=== PATIENT | male | born 1970 | race Caucasian/White ===

== ENCOUNTER 2021-08-17 08:00 | Outpatient (CLI) | payer OTHER ==
--- NOTE | 2021-08-17 19:04 | XRAY Report ---
PROCEDURE: Chest 2 View X-Ray INDICATIONS: PRODUCTIVE COUGH TECHNIQUE: 2 view(s) of the chest. COMPARISON: 01/17/2011. FINDINGS: Surgical changes and devices: None. Lungs and pleura: No pleural effusions or pneumothorax. Lungs are clear. Mediastinum: Mediastinal contours are normal. Heart size is normal. Bones and chest wall: No suspicious bony abnormalities. Soft tissues appear unremarkable. IMPRESSION: No acute cardiopulmonary disease process. Reviewed by: Radha Marx MD, PhD on 08/17/2021 7:03 PM PDT Approved by: Radha Marx MD, PhD on 08/17/2021 7:03 PM PDT Station ID: [id number]
== END 2021-08-17 23:59 | disposition home or self-care (01) ==
LOC: DI.S 08:00
PROVIDERS: ATTEND Physician Assistant
DX: R05.8 Other specified cough (principal); Z20.822 Contact with and (suspected) exposure to COVID-19

== ENCOUNTER 2022-07-07 15:34 | Emergency (ER) | payer OTHER ==
[2022-07-07 16:15] LABS: BASOPHILS # (AUTO) 0.1 10^3/uL (0.0-0.1); BASOPHILS % (AUTO) 1.2 %; EOSINOPHILS # (AUTO) 0.2 10^3/uL (0.0-0.7); EOSINOPHILS % (AUTO) 3.5 %; HCT - HEMATOCRIT 46.7 % (42.0-52.0); HGB - HEMOGLOBIN 15.9 g/dL (14.0-18.0); LYMPHOCYTES # (AUTO) 1.5 10^3/uL (1.5-3.5); LYMPHOCYTES % (AUTO) 22.1 %; MEAN CORPUSCULAR HEMOGLOBIN 31.8 pg (27.0-31.0); MEAN CORPUSCULAR VOLUME 93.4 fL (80.0-94.0); MEAN PLATELET VOLUME 10.7 fL (7.4-11.4); MONOCYTES # (AUTO) 0.4 10^3/uL (0.0-1.0); MONOCYTES % (AUTO) 5.6 %; NEUTROPHILS # (AUTO) 4.6 10^3/uL (1.5-6.6); NEUTROPHILS % (AUTO) 67.3 %; PLT - PLATELET COUNT 225 10^3/uL (130-450); RED CELL DISTRIBUTION WIDTH 11.9 % (12.0-15.0); WHITE BLOOD COUNT 6.8 x10^3/uL (4.8-10.8)
--- OUTSIDE RECORDS SUMMARY | 2022-07-07 16:19 | EXTERNAL MEDICAL SUMMARY RPT | Continuity of Care Document ---
:1970 Author Organization [facility] Address [address] [place] [address] Phone Care Team Providers Name Role Phone Unavailable Unavailable Unavailable Mikey Palacios Pa-C Unavailable Unavailable Corinne, Provider Unavailable Unavailable Allergies No information. Encounters No information. Functional Status No information. Immunizations No information. Medications date description facility 2022-06-09 00:00 omeprazole [facility] 2022-06-10 00:00 omeprazole [facility] 2022-06-09 00:00 omeprazole [facility] 2022-06-10 00:00 omeprazole [facility] 2022-06-09 00:00 omeprazole [facility] 2022-06-10 00:00 omeprazole [facility] 2022-06-09 00:00 omeprazole [facility] 2022-06-10 00:00 omeprazole [facility] Problems date description facility 2022-06-09 00:00 Viral upper respiratory tract [facility] 2022-06-09 00:00 Viral upper respiratory tract [facility] 2022-06-09 00:00 Acute upper respiratory [facility] unspecified site [facility] 2022-06-09 00:00 Acute upper respiratory [facility] unspecified site [facility] 2022-06-09 00:00 Acute upper respiratory [facility], unspecified [facility] 2022-06-09 00:00 Acute upper respiratory [facility] unspecified [facility] Procedures date description facility 2022-06-09 00:00 Visit Code Hold [facility] 2022-06-09 00:00 Visit Code Hold [facility] 2022-06-09 00:00 COVID, FLU A+B Antigen (In Clinic [facility]) [facility] 2022-06-09 00:00 COVID, FLU A+B Antigen (In Clinic [facility] Results/Labs No information. Social History date description facility 2022-06-09 00:00 Never smoker [facility] [place] 2022-06-09 00:00 Never smoker [facility] [place] Vital Signs date measurement value units 2022-06-09 00:00 BMI 27.42 kg/m2 2022-06-09 00:00 BP_diastolic 76 mmHg 2022-06-09 00:00 BP_systolic 133 mmHg 2022-06-09 00:00 heart_rate 80 /min 2022-06-09 00:00 height_metric 175.26 cm 2022-06-09 00:00 height_standard 69 in 2022-06-09 00:00 respiration_rate 16 /min 2022-06-09 00:00 temperature_metric 36.11 C 2022-06-09 00:00 temperature_standard 97 F 2022-06-09 00:00 weight_metric 83.91 kg 2022-06-09 00:00 weight_standard 185 lb
[2022-07-07 16:29] LABS: ALBUMIN 4.2 g/dL (3.2-5.5); ALBUMIN/GLOBULIN RATIO 1.4 (1.0-2.2); BILIRUBIN,TOTAL 0.8 mg/dL (0.2-1.0); CALCIUM 9.1 mg/dL (8.5-10.3); CREATININE 0.9 mg/dL (0.6-1.2); POTASSIUM 3.6 mmol/L (3.5-5.0); TOTAL PROTEIN 7.3 g/dL (6.7-8.2)
--- NOTE | 2022-07-07 16:39 | ED Physician Documentation ---
PD HPI SYNCOPE - Stated complaint Stated Complaint: DIZZY/ABDNORMAL EKG - Chief complaint Chief Complaint: Neuro - History obtained from History obtained from: Patient - Additional information Additional information: This is a very healthy 51-year-old gentleman who presents after a near syncopal episode. He has had a cough for a few weeks. Took some Delsym cough syrup this morning. Then he was at work in his usual state of health sitting at his desk. He got up and started to feel dizzy so he walked into the cafeteria at work to get a glass of water and started feel very lightheaded and kind of slumped against a vending machine without true syncope. He feels better now. There is no associated changes in bowel movements, no dark/tarry. Review of Systems Constitutional: denies: Chills Respiratory: reports: Cough. denies: Dyspnea GI: reports: Abdominal Pain PD PAST MEDICAL HISTORY - Present Medications Home Medications: Ambulatory Orders Medication Instructions Recorded Confirmed No Known Home Medications 07/07/22 07/07/22 - Allergies Allergies/Adverse Reactions: Allergies Allergy/AdvReac Type Severity Reaction Status Date / Time No Known Drug Allergies Allergy Verified 07/07/22 15:41 - Social History Does the pt smoke?: No Smoking Status: Never smoker PD ED PE NORMAL - Vitals Vital signs reviewed: Yes - General General: Alert and oriented X 3, No acute distress - HEENT HEENT: PERRL, EOMI - Neck Neck: Supple, no meningeal sign, No bony TTP - Cardiac Cardiac: RRR, No murmur, Other (limited bedside echo, no effusion, normal squeeze) - Respiratory Respiratory: No respiratory distress, Clear bilaterally - Abdomen Abdomen: Non tender - Derm Derm: Normal color, Warm and dry - Extremities Extremities: No edema, No calf tenderness / cord - Neuro Neuro: Alert and oriented X 3, Normal speech Results - Vitals Vitals: Vital Signs - 24 hr 07/07/22 15:41 Temperature 36.1 C L Heart Rate 87 Respiratory 18 Rate Blood Pressure 116/68 O2 Saturation 98 Oxygen O2 Source Room air - EKG (time done) 1549 Rate: Rate (enter#) (77) Rhythm: NSR Rinard: RAD Intervals: Normal CT QRS: Low voltage Ischemia: Normal ST segments - Labs Labs: Laboratory Tests 07/07/22 07/07/22 07/07/22 16:10 16:10 16:10 WBC 6.8 RBC 5.00 Hgb 15.9 Hct 46.7 MCV 93.4 MCH 31.8 H MCHC 34.0 RDW 11.9 L Plt Count 225 MPV 10.7 Neut # (Auto) 4.6 Lymph # (Auto) 1.5 I[place]quois # (Auto) 0.4 Eos # (Auto) 0.2 Baso # (Auto) 0.1 Absolute Nucleated RBC 0.00 Nucleated RBC % 0.0 Sodium 136 Potassium 3.6 Chloride 100 L Carbon Dioxide 26 Anion Gap 10.0 BUN 14 Creatinine 0.9 Estimated GFR (MDRD) 89 Glucose 147 H Calcium 9.1 Total Bilirubin 0.8 AST 24 ALT 43 Alkaline Phosphatase 51 Troponin I High Sens < 2.3 L Total Protein 7.3 Albumin 4.2 Globulin 3.1 Albumin/Globulin Ratio 1.4 Lipase 59 H PD Medical Decision Making - ED course ED course: CBC reviewed and normal. Troponin reviewed and negative/normal. CMP reviewed with modest hyperglycemia, no other concerning findings. Two-view chest x-ray is unremarkable. 51-year-old gentleman after near syncopal episode without pertinent positive findings in the ER and has been asymptomatic for several hours prior to arrival. Differential diagnosis includes dehydration, pericardial effusion (ruled out wi th bedside echo), pneumothorax (ruled out with normal chest x-ray), active heart disease, but there is no evidence of this. Departure - Departure Disposition: 01 Home, Self Care Clinical Impression: Near syncope Condition: Good Record reviewed to determine appropriate education?: Yes Instructions: ED Near Syncope Unkn Comments: Work-up today was unremarkable with normal limited bedside echocardiogram, unremarkable labs and abnormal chest x-ray. Call your doctor to arrange a follow-up appointment, make the next available appointment. In the interim, return anytime if worse or if new symptoms deve lop.
[2022-07-07 17:14] VITALS: BP 119/71
--- NOTE | 2022-07-07 17:16 | XRAY Report ---
PROCEDURE: Chest 2 View X-Ray INDICATIONS: cough TECHNIQUE: 2 views of the chest were acquired. COMPARISON: Chest x-ray 08/17/2021 FINDINGS: Surgical changes and devices: None. Lungs and pleura: No pleural effusions or pneumothorax. Lungs are clear. Mediastinum: Mediastinal contours are normal. Heart size is normal. Bones and chest wall: No suspicious bony abnormalities. Soft tissues appear unremarkable. IMPRESSION: No acute pulmonary process. Reviewed by: Tiffanie Borrero MD on 07/07/2022 5:15 PM PST Approved by: Tiffanie Borrero MD on 07/07/2022 5:15 PM PST Station ID: [id number]
== END 2022-07-07 17:13 | disposition home or self-care (01) ==
LOC: ED 15:34
DX: R55 Syncope and collapse (principal)
CPT/HCPCS: 36415; 80053; 83690; 84484; 85025; 93005; 99283; 99284

== ENCOUNTER 2022-10-04 09:52 | Outpatient (CLI) | payer OTHER ==
[2022-10-04 10:13] LABS: BASOPHILS # (AUTO) 0.1 10^3/uL (0.0-0.1); BASOPHILS % (AUTO) 1.2 %; EOSINOPHILS # (AUTO) 0.1 10^3/uL (0.0-0.7); EOSINOPHILS % (AUTO) 2.7 %; HCT - HEMATOCRIT 47.2 % (42.0-52.0); HGB - HEMOGLOBIN 16.4 g/dL (14.0-18.0); LYMPHOCYTES # (AUTO) 1.2 10^3/uL (1.5-3.5); LYMPHOCYTES % (AUTO) 23.9 %; MEAN CORPUSCULAR HEMOGLOBIN 32.4 pg (27.0-31.0); MEAN CORPUSCULAR HGB CONC 34.7 g/dL (32.0-36.0); MEAN CORPUSCULAR VOLUME 93.3 fL (80.0-94.0); MEAN PLATELET VOLUME 10.6 fL (7.4-11.4); MONOCYTES # (AUTO) 0.4 10^3/uL (0.0-1.0); MONOCYTES % (AUTO) 7.5 %; NEUTROPHILS # (AUTO) 3.3 10^3/uL (1.5-6.6); NEUTROPHILS % (AUTO) 64.5 %; PLT - PLATELET COUNT 210 10^3/uL (130-450); RED BLOOD COUNT 5.06 10^6/uL (4.70-6.10); RED CELL DISTRIBUTION WIDTH 12.4 % (12.0-15.0); WHITE BLOOD COUNT 5.2 x10^3/uL (4.8-10.8)
[2022-10-04 10:20] LABS: ALBUMIN 4.2 g/dL (3.2-5.5); ALBUMIN/GLOBULIN RATIO 1.5 (1.0-2.2); BILIRUBIN,TOTAL 0.8 mg/dL (0.2-1.0); CALCIUM 9.1 mg/dL (8.5-10.3); CREATININE 0.9 mg/dL (0.6-1.2); POTASSIUM 4.1 mmol/L (3.5-5.0)
[2022-10-04 10:33] LABS: THYROID STIMULATING HORMONE 1.71 uIU/mL (0.34-5.60)
[2022-10-04 10:48] LABS: INFECTIOUS MONONUCLEOSIS NEGATIVE (Negative)
== END 2022-10-04 09:53 | disposition home or self-care (01) ==
LOC: LAB 09:52
PROVIDERS: ATTEND Physician Assistant Medical
DX: R53.81 Other malaise (principal); R53.83 Other fatigue; J02.9 Acute pharyngitis, unspecified; Z13.29 Encounter for screening for other suspected endocrine disorder; J04.0 Acute laryngitis
CPT/HCPCS: 36415; 80053; 84443; 85025; 86308